=== PATIENT | male | born 1990 | race American Indian/Alaskan Native ===

== ENCOUNTER 2020-05-03 11:17 | Outpatient (CLI) | payer OTHER ==
[2020-05-03 11:40] LABS: Hematocrit 41.9 % (35.5-45.6); Hemoglobin 13.8 gm/dl (11.8-15.2); Mean Corpuscular HGB Conc 33 % (32-34); Mean Corpuscular Volume 94 fl (84-94); Platelet Count 340 K/mm3 (140-440); Red Blood Count 4.45 M/mm3 (3.65-5.03); Red Cell Distribution Width 15.3 % (13.2-15.2)
[2020-05-03 11:56] LABS: Alanine Aminotransferase 16 units/L (7-56); Albumin 4.4 g/dL (3.9-5); BUN/Creatinine Ratio 6; Blood Urea Nitrogen 7 mg/dL (9-20); Calcium 9.5 mg/dL (8.4-10.2); Chol/HDL Ratio 3.83 %; HDL Cholesterol 54 mg/dL (40-59); Hemolysis Index 9; LDL Cholesterol,Direct 138 mg/dL (50-130)
== END 2020-05-03 11:18 | disposition home or self-care (01) ==
LOC: LAB 11:17
PROVIDERS: ATTEND Psychiatry & Neurology Psychiatry
DX: F31.60 Bipolar disorder, current episode mixed, unspecified (principal)
CPT/HCPCS: 36415; 80053; 80061; 83036; 84443; 85027

== ENCOUNTER 2021-07-06 01:15 | Emergency (ER) | payer BC, OTHER ==
[2021-07-06] MEDS ORDERED: SODIUM CHLORIDE 0.9% 1000 ML 1,000 ML IV ONE (01:54)
[2021-07-06] MEDS ORDERED: LORazepam 2 MG/ML VIAL IV ONE (01:54)
[2021-07-06] MEDS ORDERED: ONDANSETRON 4 MG/2 ML INJ IV ONE (01:57)
--- NOTE | 2021-07-06 01:58 | Emergency Department Report ---
ED Medical Clearance HPI - General Chief complaint: Medical Clearance Stated complaint: ALCOHOL WITHDRAWAL Time Seen by Provider: 07/06/21 01:54 Source: patient Mode of arrival: Ambulatory - History of Present Illness Initial comments: Patient is a 31-year-old male presents emergency room for medical clearance. Patient was sent here by [facility] to be medically cleared for alcohol. States his last alcohol intake was yesterday at 5 PM. Patient states that he is feeling anxious and shaky. Patient states he is also having nausea. Patient denies vomiting. Patient states he feels like he needs some fluids. Patient denies chest pain or shortness of breath. Patient denies recent travel. Patient denies recent international travel. Patient denies exposure to the novel coronavirus. Patient denies sick contacts. Patient denies fever and chills. Patient denies cough. Patient denies diarrhea. Patient denies coming in contact with anybody with symptoms of the novel coronavirus. Complaint: medical clearance request -: Sudden Reason for Medical Clearance: psychiatric condition Place: home Alledged Intoxication: No Compliant with Home Medications: Yes Traumatic Symptoms: denies traumatic injury Associated Symptoms: nausea/vomiting. denies: shortness of breath, palpitations, diaphoresis, confusion, cough, fever/chills, anorexia, malaise, rash, seizure, syncope, weakness Treatments Prior to Arrival: none Allergies/Adverse reactions: Allergies Allergy/AdvReac Type Severity Reaction Status Date / Time No Known Allergies Allergy Unverified 07/06/21 01:42 ED Review of Systems ROS: Stated complaint: ALCOHOL WITHDRAWAL Other details as noted in HPI Constitutional: denies: chills, fever Eyes: denies: eye pain, eye discharge, vision change ENT: denies: ear pain, throat pain Respiratory: denies: cough, shortness of breath, wheezing Cardiovascular: denies: chest pain, palpitations Endocrine: no symptoms reported Gastrointestinal: denies: abdominal pain, nausea, diarrhea Genitourinary: denies: urgency, dysuria Musculoskeletal: denies: back pain, joint swelling, arthralgia Skin: denies: rash, lesions Neurological: as per HPI. denies: headache, weakness, paresthesias Psychiatric: anxiety. denies: depression Hematological/Lymphatic: denies: easy bleeding, easy bruising ED Past Medical Hx - Past Medical History Previous Medical History?: No - Surgical History Past Surgical History?: No - Family History Family history: no significant - Social History Smoking Status: Never Smoker Substance Use Type: Alcohol ED Physical Exam - General Limitations: No Limitations General appearance: alert, in no apparent distress - Head Head exam: Present: atraumatic, normocephalic - Eye Eye exam: Present: normal appearance - ENT ENT exam: Present: mucous membranes moist - Neck Neck exam: Present: normal inspection - Respiratory Respiratory exam: Present: normal lung sounds bilaterally. Absent: respiratory distress - Cardiovascular Cardiovascular Exam: Present: regular rate, normal rhythm. Absent: systolic murmur, diastolic murmur, rubs, gallop - GI/Abdominal GI/Abdominal exam: Present: soft, normal bowel sounds - Rectal Rectal exam: Present: deferred - Extremities Exam Extremities exam: Present: normal inspection - Back Exam Back exam: Present: normal inspection - Neurological Exam Neurological exam: Present: alert, oriented X3 - Psychiatric Psychiatric exam: Present: normal affect, normal mood - Skin Skin exam: Present: warm, dry, intact, normal color. Absent: rash ED Course Vital Signs 07/06/21 01:24 Temperature 98.7 F Pulse Rate 114 H Respiratory 18 Rate Blood Pressure 138/102 O2 Sat by Pulse 95 Oximetry - Reevaluation(s) Reevaluation #1: Patient states he is feeling much better. 07/06/21 03:19 Reevaluation #2: Patient states his anxiety and symptoms have improved. Patient's states he is feeling better. Patient states he does not feel dehydrated anymore. Patient states he does not feel shaky. 07/06/21 05:19 Reevaluation #3: Patient has already been accepted to [facility] for alcohol rehab. Patient states he is feeling much better. Patient is medically cleared. Patient is stable to be transported over to [facility]. Patient is medically ready for a psychiatric admission. I discussed all results and clinical findings with patient. I discussed plan of care with patient. Patient agrees with plan of care. Patient is stable for discharge. Patient will be discharged home. Patient given discharge instructions. Patient voiced understanding of discharge instructions. 07/06/21 05:40 ED Medical Decision Making - Lab Data Result diagrams: 07/06/21 01:59 07/06/21 01:59 - Medical Decision Making Patient is a 31-year-old male that sent to the emergency room for medical clearance from a local psychiatric facility. Patient is going to this facility for alcohol rehab. Patient has chronic alcohol use. Patient has not had alco hol use for 12 hours. Patient states he is feeling anxious, nauseous and tremulous. Patient given fluids and Ativan and the patient states he feels much better. Patient did not have any seizure-like activity in the ER. Patient's vital signs are reassuring. Patient had labs done which were essentially unremarkable except for dehydration. Patient is medically cleared for a rehab admission. Patient is not require any further emergency medical service. Patient already has a bed at [facility]. Patient discharged and is going to be transported by his family members. I discussed all results and clinical findings with patient. I discussed plan of care with patient. Patient agrees with plan of care. Patient is stable for discharge. Patient will be discharged home. Patient given discharge instructions. Patient voiced understanding of discharge instructions. - Differential Diagnosis Alcohol withdrawal, anxiety, tremors, nausea, alcohol use disorder ED Disposition Clinical Impression: Anxiety, Alcohol abuse, Nausea, Dehydration, Medical clearance for psychiatric admission Alcohol withdrawal Qualifiers: Complication of substance-induced condition: uncomplicated Qualified Code(s): F10.230 - Alcohol dependence with withdrawal, uncomplicated Disposition: [facility] Is pt being admited?: No Does the pt Need Aspirin: No Condition: Stable Instructions: Nausea and Vomiting, Adult, [id number], Alcohol Abuse and Dependence Information, Adult, Alcohol Use Disorder, Alcohol Withdrawal Syndrome , [id number] Additional Instructions: Patient to follow-up with primary care in 2 to 3 days. Patient to go directly to the alcohol rehab facility, [facility]. Patient to rest. Patient to increase water. Patient to take Tylenol or ibuprofen as needed for pain. Patient to return to the ER if condition worsens, changes or new symptoms arise. Time of Disposition: 05:42
[2021-07-06 02:37] LABS: Basophils % (Auto) 0.4 % (0.0-1.8); Hematocrit 44.5 % (35.5-45.6); Hemoglobin 15.4 gm/dl (11.8-15.2); Lymphocytes # (Auto) 1.2 K/mm3 (1.2-5.4); Lymphocytes % (Auto) 26.4 % (13.4-35.0); Mean Corpuscular HGB Conc 35 % (32-34); Mean Corpuscular Volume 91 fl (84-94); Monocytes # (Auto) 0.5 K/mm3 (0.0-0.8); Monocytes % (Auto) 10.4 % (0.0-7.3); Platelet Count 142 K/mm3 (140-440); Red Blood Count 4.92 M/mm3 (3.65-5.03); Red Cell Distribution Width 13.7 % (13.2-15.2)
[2021-07-06 02:49] LABS: Alanine Aminotransferase 49 units/L (7-56); Albumin 5.1 g/dL (3.9-5); BUN/Creatinine Ratio 5; Blood Urea Nitrogen 5 mg/dL (9-20); Calcium 9.1 mg/dL (8.4-10.2); Hemolysis Index 9
[2021-07-06 03:15] LABS: Mucus,Urine 1+ /HPF
[2021-07-06 03:18] LABS: Amphetamine Screen,Urine PRESUMPTIVE NEGATIVE; Benzodiazepines Screen,Urine PRESUMPTIVE NEGATIVE; Cannabinoid Screen,Urine PRESUMPTIVE NEGATIVE; Cocaine Screen,Urine PRESUMPTIVE NEGATIVE; Methadone Screen,Urine PRESUMPTIVE NEGATIVE; Opiate Screen,Urine PRESUMPTIVE NEGATIVE
[2021-07-06 03:35] LABS: Bilirubin,Urine Negative (Negative); Blood,Urine Small (Negative); Color,Urine Yellow (Yellow)
[2021-07-06 03:36] LABS: Protein,Urine >500 mg/dL (Negative)
[2021-07-06 06:56] VITALS: BP 117/73
== END 2021-07-06 07:28 ==
LOC: EDBD → ED 01:15
DX: F10.139 Alcohol abuse with withdrawal, unspecified (principal); F41.8 Other specified anxiety disorders; R11.0 Nausea; E86.0 Dehydration; Z13.30 Encounter for screening examination for mental health and behavioral disorders, unspecified
CPT/HCPCS: 36415; 80053; 80307; 81001; 85025; 96361; 96374; 96375; 99283; J2060; J2405; J7030; 80320; G0480